=== PATIENT | female | born 1985 | race Hispanic/Latino ===

== ENCOUNTER 2022-01-25 10:13 | Emergency (ER) | payer OTHER, SELFPAY ==
[2022-01-25] MEDS ORDERED: Boostrix 0.5 ML (Tdap) VIAL ONE (10:57)
[2022-01-25] MEDS ORDERED: Lidocaine 1% (PF) 30 ML VIAL ONE (10:58)
== END 2022-01-25 11:25 | disposition home or self-care (01) ==
LOC: NAV ERS 10:13
DX: L02.214 Cutaneous abscess of groin (principal); G43.909 Migraine, unspecified, not intractable, without status migrainosus; F17.210 Nicotine dependence, cigarettes, uncomplicated
CPT/HCPCS: 10060; 90471; 90715; J2001

== ENCOUNTER 2022-07-03 17:30 | Emergency (ER) | payer MEDICAID ==
[2022-07-03] MEDS ORDERED: HYDROcodone/Acetaminophen 5/325 mg Tablet ONE (18:05)
== END 2022-07-03 18:10 | disposition home or self-care (01) ==
LOC: NAV ERS 17:30
DX: K04.4 Acute apical periodontitis of pulpal origin (principal); F17.210 Nicotine dependence, cigarettes, uncomplicated
CPT/HCPCS: 99282

== ENCOUNTER 2022-07-30 13:04 | Emergency (ER) | payer MEDICAID ==
[2022-07-30 13:47] LABS: #Eosinphils 0.2 thou/uL (0.0-0.7); #Lymphocytes 2.1 thou/uL (1.20-3.40); #Monocytes 0.3 thou/uL (0.11-0.59); #Neutrophils 2.3 thou/uL (1.40-6.50); %Basophils 0.4 % (0.0-1.0); %Eosinophils 3.2 % (0.0-10.0); %Lymphocytes 43.6 % (21.0-51.0); %Monocytes 6.4 % (0.0-10.0); %Neutrophils 46.4 % (42.0-75.0); Hemoglobin 14.9 g/dL (12.0-16.0); Mean Corpuscular HGB CONC 34.6 g/dL (32.0-36.0); Mean Platelet Volume 7.2 fL (7.4-10.4); Platelet Count 249 10x3/uL (130-400); RBC Distribution Width 10.7 % (11.5-14.5); Red Blood Cell (RBC) Count 4.26 mill/uL (4.20-5.40); White Blood Cell (WBC) Count 4.9 10x3/uL (4.8-10.8)
[2022-07-30 13:52] LABS: ALT (SGPT) 69 U/L (8-55); AST (SGOT) 41 U/L (5-34); Albumin 4.3 g/dL (3.5-5.0); Alkaline Phosphatase 85 U/L (40-110); Anion Gap 14 mmol/L (10-20); BUN (Urea Nitrogen) 9 mg/dL (7.0-18.7); Bilirubin, Total 0.3 mg/dL (0.2-1.2); Calc. Creatinine Clearance 0 mL/min (70-130); Calcium 9.5 mg/dL (7.8-10.44); Carbon Dioxide 22 mmol/L (22-29); Chloride 106 mmol/L (98-107); Estimated GFR 117; Globulin 2.5 g/dL (2.4-3.5); Glucose 109 mg/dL (70-105); Potassium 3.9 mmol/L (3.5-5.1); Protein, Total 6.8 g/dL (6.0-8.3); Sodium 138 mmol/L (136-145)
[2022-07-30] MEDS ORDERED: Sodium Chloride 0.9% 1,000 ML ONE (14:41)
[2022-07-30] MEDS ORDERED: methylPREDNISolone Sod Succ/PF 125 MG/2 ML VIAL ONE (14:41)
[2022-07-30] MEDS ORDERED: Acetaminophen 500 MG TAB ONE (14:41)
[2022-07-30] MEDS ORDERED: Ondansetron PF 4 MG/2 ML Vial ONE (14:42)
== END 2022-07-30 17:01 | disposition home or self-care (01) ==
LOC: NAV ERS 13:04
DX: R09.1 Pleurisy (principal); B34.9 Viral infection, unspecified; Z20.822 Contact with and (suspected) exposure to COVID-19; G43.909 Migraine, unspecified, not intractable, without status migrainosus; F17.210 Nicotine dependence, cigarettes, uncomplicated
CPT/HCPCS: 71046; 80053; 84484; 85025; 87804; 93005; 96374; 96375; J2405; J2930; J7050; U0003; U0005

== ENCOUNTER 2022-12-02 18:57 | Emergency (ER) | payer OTHER, SELFPAY ==
[2022-12-02] MEDS ORDERED: Bupivacaine 0.5% 10 ML VIAL ONE (19:15)
[2022-12-02] MEDS ORDERED: Lidocaine Viscous Sol 2% 15 ml UD Cup ONE (19:15)
== END 2022-12-02 19:39 | disposition home or self-care (01) ==
LOC: NAV ERS 18:57
DX: K04.7 Periapical abscess without sinus (principal); F17.210 Nicotine dependence, cigarettes, uncomplicated
CPT/HCPCS: 64400; J3490

== ENCOUNTER 2023-07-21 11:49 | Emergency (ER) | payer SELFPAY ==
[2023-07-21 12:09] LABS: Bilirubin Negative (Negative); Blood, Urine Moderate (Negative); Clarity Cloudy (Clear); Glucose, Urine (Dipstick) Negative (Negative); Ketone, Urine Negative (Negative); Leukocyte Trace (Negative); Nitrite Negative (Negative); Protein, Urine (Dipstick) 100 mg/dL (Neg-Trace); Specific Gravity, Urine 1.025 (1.005-1.030); Urobilinogen 0.2 mg/dL (Less than 2)
[2023-07-21 12:15] LABS: CAUTI Indications for Culture Dysuria,urgency,freq
[2023-07-21 12:17] LABS: Bacteria/HPF 3+ HPF (None Seen); Yeast-Budding 1+ HPF (None Seen)
[2023-07-21 12:18] LABS: Pregnancy Test - Urine (BHCG) Negative (Negative); Pregu Control Bar Appear? YES (CONTROL BAR); Specific Gravity 1.025 (1.002-1.036); Urine Culture Reflex No No
[2023-07-21 12:19] LABS: Pregu Control Background? CLEAR/WHITE (CLR/WHITE)
== END 2023-07-21 12:50 | disposition home or self-care (01) ==
LOC: NAV ERS 11:49
DX: N39.0 Urinary tract infection, site not specified (principal); Z87.891 Personal history of nicotine dependence
CPT/HCPCS: 81001; 81025; 99283

== ENCOUNTER 2023-10-31 21:57 | Emergency (ER) | payer OTHER, SELFPAY ==
[2023-10-31] MEDS ORDERED: methylPREDNISolone Sod Succ/PF 125 MG/2 ML VIAL ONE (22:17)
[2023-10-31] MEDS ORDERED: diphenhydrAMINE 50 MG/ML VIAL ONE (22:17)
== END 2023-10-31 23:50 | disposition home or self-care (01) ==
LOC: NAV ERS 21:57
DX: T78.40XA Allergy, unspecified, initial encounter (principal); Z87.891 Personal history of nicotine dependence
CPT/HCPCS: 96372; 99282; J1200; J2930

== ENCOUNTER 2024-03-19 13:48 | Emergency (ER) | payer SELFPAY ==
[2024-03-19] MEDS ORDERED: Lidocaine 2% Viscous 100 ML BOTTLE ONE (14:30)
[2024-03-19] MEDS ORDERED: Mag-Al Plus 1200/1200/120 MG (30 mL) UDCUP ONE (14:30)
[2024-03-19] MEDS ORDERED: Ondansetron PF 4 MG/2 ML Vial ONE (14:34)
[2024-03-19] MEDS ORDERED: Pantoprazole 40 MG VIAL ONE (14:34)
[2024-03-19] MEDS ORDERED: Morphine 4 MG/ML VIAL ONE (15:37)
[2024-03-19 15:50] LABS: #Eosinphils 0.1 thou/uL (0.0-0.7); #Lymphocytes 1.6 thou/uL (1.20-3.40); #Monocytes 0.3 thou/uL (0.11-0.59); #Neutrophils 2.5 thou/uL (1.40-6.50); %Basophils 0.2 % (0.0-1.0); %Eosinophils 2.7 % (0.0-10.0); %Lymphocytes 35.5 % (21.0-51.0); %Monocytes 6.7 % (0.0-10.0); Hematocrit 37.2 % (36.0-47.0); Hemoglobin 12.4 g/dL (12.0-16.0); Mean Corpuscular HGB CONC 33.4 g/dL (32.0-36.0); Mean Corpuscular Hemoglobin 31.6 pg (27.0-31.0); Mean Corpuscular Volume 94.5 fl (78.0-98.0); Mean Platelet Volume 6.3 fL (7.4-10.4); Platelet Count 231 10x3/uL (130-400); RBC Distribution Width 10.4 % (11.5-14.5); Red Blood Cell (RBC) Count 3.94 mill/uL (4.20-5.40); White Blood Cell (WBC) Count 4.6 10x3/uL (4.8-10.8)
[2024-03-19 16:05] LABS: ALT (SGPT) 60 U/L (8-55); AST (SGOT) 45 U/L (5-34); Alkaline Phosphatase 53 U/L (40-110); Anion Gap 14 mmol/L (10-20); BUN (Urea Nitrogen) 10 mg/dL (7.0-18.7); Bilirubin, Total 0.4 mg/dL (0.2-1.2); Calc. Creatinine Clearance 0 mL/min (70-130); Carbon Dioxide 23 mmol/L (22-29); Chloride 106 mmol/L (98-107); Estimated GFR 105; Globulin 2.6 g/dL (2.4-3.5); Glucose 95 mg/dL (70-105); Potassium 3.6 mmol/L (3.5-5.1); Protein, Total 6.6 g/dL (6.0-8.3); Sodium 139 mmol/L (136-145)
[2024-03-19 16:06] LABS: Troponin I Less than 0.010 ng/mL (< 0.028)
== END 2024-03-19 17:08 | disposition home or self-care (01) ==
LOC: NAV ERS 13:48
DX: K29.00 Acute gastritis without bleeding (principal); F17.290 Nicotine dependence, other tobacco product, uncomplicated
CPT/HCPCS: 71045; 80053; 84484; 85025; 96374; 96375; C9113; J2270; J2405

== ENCOUNTER 2024-04-06 20:24 | Emergency (ER) | payer SELFPAY ==
[2024-04-06] MEDS ORDERED: predniSONE 20 MG TAB ONE (21:08)
[2024-04-06 21:28] LABS: Influenza A by NAA Not Detected (NotDetected); Influenza B by NAA Not Detected (NotDetected); SARS-CoV-2 NAA Rapid Test Not Detected (NotDetected)
[2024-04-06] MEDS ORDERED: Benzonatate 100 MG CAP ONE (21:49)
== END 2024-04-06 22:01 | disposition home or self-care (01) ==
LOC: NAV ERS 20:24
DX: B34.9 Viral infection, unspecified (principal); J02.8 Acute pharyngitis due to other specified organisms; F17.290 Nicotine dependence, other tobacco product, uncomplicated
CPT/HCPCS: 87081; 87430; 99283; J7512

== ENCOUNTER 2024-07-27 13:36 | Emergency (ER) | payer SELFPAY ==
[2024-07-27] MEDS ORDERED: predniSONE 20 MG TAB ONE (14:06)
== END 2024-07-27 14:47 | disposition home or self-care (01) ==
LOC: NAV ERS 13:36
DX: J98.01 Acute bronchospasm (principal)
CPT/HCPCS: 71045; 87428; J7512

== ENCOUNTER 2024-09-16 15:35 | Emergency (ER) | payer SELFPAY | END 2024-09-16 16:12 | disposition home or self-care (01) | LOC: NAV ERS 15:35 | DX: B34.9 Viral infection, unspecified (principal); F17.290 Nicotine dependence, other tobacco product, uncomplicated | CPT/HCPCS: 99282 ==

== ENCOUNTER 2025-06-13 16:17 | Emergency (ER) | payer OTHER | END 2025-06-13 17:03 | disposition home or self-care (01) | LOC: NAV ERS 16:17 | DX: S93.401A Sprain of unspecified ligament of right ankle, initial encounter (principal); F17.290 Nicotine dependence, other tobacco product, uncomplicated; X50.9XXA Other and unspecified overexertion or strenuous movements or postures, initial encounter | CPT/HCPCS: 99283 ==

== ENCOUNTER 2025-06-23 11:59 | Emergency (ER) | payer OTHER ==
[2025-06-23] MEDS ORDERED: Acetaminophen 325 MG TAB ONE (13:05)
== END 2025-06-23 14:00 | disposition short-term general hospital (02) ==
LOC: NAV ERS 11:59
DX: S93.401A Sprain of unspecified ligament of right ankle, initial encounter (principal); F17.290 Nicotine dependence, other tobacco product, uncomplicated; X50.1XXA Overexertion from prolonged static or awkward postures, initial encounter; Z79.899 Other long term (current) drug therapy
CPT/HCPCS: 99284

== ENCOUNTER 2025-08-03 18:02 | Emergency (ER) | payer OTHER | END 2025-08-03 18:36 | disposition home or self-care (01) | LOC: NAV ERS 18:02 | DX: B34.9 Viral infection, unspecified (principal); F17.290 Nicotine dependence, other tobacco product, uncomplicated | CPT/HCPCS: 99283 ==

== ENCOUNTER 2025-09-07 19:05 | Emergency (ER) | payer BC, OTHER | END 2025-09-07 21:19 | disposition home or self-care (01) | LOC: NAV ERS 19:05 | DX: J06.9 Acute upper respiratory infection, unspecified (principal); B34.9 Viral infection, unspecified; R09.1 Pleurisy; F17.290 Nicotine dependence, other tobacco product, uncomplicated | CPT/HCPCS: 71046; 87428; 96372; J1010 ==